=== PATIENT | male | born 1945 | race Caucasian/White ===

== ENCOUNTER 2021-07-18 19:59 | Emergency (ER) | payer MEDICARE ==
[~2021-07-18] VITALS: Ht 177.8 cm; Wt 83.9 kg
[~2021-07-18 19:59] MED LIST: BACTRIM DS TAB1 EACH PO; BUPROPION HCL75 MG; DICLOFENAC SODI75 MG PO; GLIPIZIDE XL5 MG PO; HYDROCODON-ACE1 EA14; KEFLEX500 MG PO; LEVOTHYROXINE100 MCG PO; NOVOLOG100 UNIT/1; RANITIDINE HCL150 MG; SIMVASTATIN80 MG; ZESTORETIC
--- NOTE | 2021-07-19 07:50 | EKG ---
[facility] [address] [place] [address] Signed Sinus rhythm with premature atrial complexes in a pattern of bigeminy Otherwise normal ECG No previous ECGs available Confirmed by CESAR ARMENTA MD ([id number]) on 07/19/2021 7:50:20 AM Electronically Signed By: CSEAR ARMENTA MD 07/19/21 0750 PATIENT NAME: ISIDROJERSEY Electrocardiogram DATE OF : 47 PHYSICIAN: CESAR ARMENTA MD REPORT #: [id number] REPORT IS CONFIDENTIAL AND NOT TO BE RELEASED WITHOUT AUTHORIZATION
== END 2021-07-19 00:28 | disposition home or self-care (01) ==
LOC: ED 19:59
DX: U07.1 COVID-19 (principal); N19 Unspecified kidney failure; E11.9 Type 2 diabetes mellitus without complications; I10 Essential (primary) hypertension; Z79.899 Other long term (current) drug therapy; Z79.4 Long term (current) use of insulin
CPT/HCPCS: 51798; 71045; 80048; 81001; 84484; 85025; 93005; 93010; 99285-25; C9803; G0480; J7030; U0003

== ENCOUNTER 2024-12-24 15:17 | Emergency (ER) | payer OTHER, MEDICARE ==
[~2024-12-24] VITALS: Ht 177.8 cm; Wt 87.1 kg
[2024-12-24] MEDS ORDERED: ASPIRIN81 MG PO (17:23)
[2024-12-24 17:31] VITALS: BP 134/69
== END 2024-12-24 17:31 | disposition home or self-care (01) ==
LOC: ED 15:17
DX: K40.90 Unilateral inguinal hernia, without obstruction or gangrene, not specified as recurrent (principal); I10 Essential (primary) hypertension; E11.9 Type 2 diabetes mellitus without complications; Z79.899 Other long term (current) drug therapy
CPT/HCPCS: 99283

== ENCOUNTER 2025-04-01 14:05 | Emergency (ER) | payer OTHER, MEDICARE ==
[~2025-04-01] VITALS: Ht 177.8 cm; Wt 74.8 kg
[~2025-04-01 14:05] MED LIST changes: +ASPIRIN81 MG PO
[2025-04-01] MEDS ORDERED: LASIX20 MG PO (14:28)
[2025-04-01 14:45] LABS: BASOPHILS 0.6 % (0.2-1.2); EOSINOPHILS 1.9 % (0.8-7.0); LYMPHOCYTES 13.1 % (21.8-53.1); MCH 30.6 PG (25.7-32.2); MCHC 33.3 g/dL (32.3-36.5); MCV 91.7 fL (79.0-92.2); MONOCYTES 6.4 % (5.3-12.2); NEUTROPHILS 77.8 % (34.0-67.9); RBC 4.81 M/uL (4.63-6.08)
[2025-04-01 14:57] LABS: ALT (SGPT) 17.0 U/L (14-59); AST (SGOT) 20.0 U/L (15-37); GLOMERULAR FILTRATION RATE,EST 51.0 mL/min (>60); PROTEIN, TOTAL 7.8 g/dL (6.4-8.2); UREA NITROGEN 21.0 mg/dL (7-18)
[2025-04-01] MEDS ORDERED: SODIUM CHLORIDE 0.9% 1,000 ML IV PRN (15:30)
[2025-04-01] MEDS ORDERED: LIDOCAINE 2% VISCOUS 6 ML SYR TOP ONE (17:30)
[2025-04-01 17:48] LABS: BLOOD/HGB, URINE NEGATIVE (Negative); KETONE, URINE NEGATIVE (Negative); LEUK ESTERASE, URINE NEGATIVE (negative); NITRITE, URINE NEGATIVE (negative)
[2025-04-01 19:07] VITALS: BP 135/82
--- NOTE | 2025-04-02 07:28 | EKG ---
[facility] [address] [facility] [place] [address] Signed Suspect arm lead reversal, interpretation assumes no reversal Sinus rhythm with 1st degree AV block with premature atrial complexes Biventricular hypertrophy with repolarization abnormality Lateral infarct , age undetermined Abnormal ECG When compared with ECG of 18-JUL-2021 20:06, Significant changes have occurred Confirmed by PEPITO BOYKIN MD ([id number]) on 04/02/2025 7:28:33 AM Electronically Signed By: PEPITO BOYKIN 04/02/25 0728 PATIENT NAME: DWAINEJERSEY Pj Electrocardiogram DATE OF : 47 PHYSICIAN: PEPITO BOYKIN REPORT #: [id number] REPORT IS CONFIDENTIAL AND NOT TO BE RELEASED WITHOUT AUTHORIZATION
== END 2025-04-01 19:07 | disposition home or self-care (01) ==
LOC: ED 14:05
PROVIDERS: Emergency Medicine
DX: E86.0 Dehydration (principal); E11.9 Type 2 diabetes mellitus without complications; I11.0 Hypertensive heart disease with heart failure; I50.9 Heart failure, unspecified; Z79.890 Hormone replacement therapy; Z79.899 Other long term (current) drug therapy; Z79.82 Long term (current) use of aspirin
CPT/HCPCS: 36415; 51702; 51798; 80053; 81003; 83735; 84484; 85025; 93005; 93010; 96360; 99284-25; A4311; J7030

== ENCOUNTER 2025-04-09 01:52 | Inpatient (IN) | payer OTHER, MEDICARE ==
[~2025-04-09] VITALS: Ht 177.8 cm; Wt 70.2 kg
[2025-04-09] VITALS (7 sets, daily range): BP systolic 94–132; BP diastolic 37–83
[~2025-04-09 01:52] MED LIST changes: +LASIX20 MG PO; -LEVOTHYROXINE100 MCG PO; +LEVOTHYROXINE88 MCG PO
--- OUTSIDE RECORDS SUMMARY | 2025-04-09 01:55 | XMS ---
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 Eduard has no Care Guidelines for this patient. Angel VISIT COUNT (12 MO.) [address] [facility] TOTAL 5 NOTE: Visits indicate total known visits. ED/UCC VISIT TRACKING (12 MO.) 04/09/2025 01:52 [facility] [place] TYPE: Emergency COMPLAINT: - ALTERED 04/03/2025 16:21 [facility] [place] TYPE: Emergency COMPLAINT: - WEAKNESS DIAGNOSES: - Allergy status to other drugs, medicaments and biological substances - Essential (primary) hypertension - Heart failure, unspecified - Hypertensive heart disease with heart failure - terminal gauger supervisor (current) use of aspirin - Lower abdominal pain, unspecified - Other chcf (current) drug therapy - Type 2 diabetes mellitus without complications - Weakness 04/01/2025 14:06 [facility] [place] TYPE: Emergency COMPLAINT: - CONFUSED,SWOLLEN FEET,DIARRHEA DIAGNOSES: - Dehydration - Heart failure, unspecified - Hormone replacement therapy - Hypertensive heart disease with heart failure - terminal gauger supervisor (current) use of aspirin - Other chcf (current) drug therapy - Type 2 diabetes mellitus without complications - Weakness 02/19/2025 18:01 [facility] [place] TYPE: Emergency DIAGNOSES: - Other specified soft tissue disorders - Pain in left ankle and joints of left foot - L ANKLE INJURY - L ANKLE PROBLEM 12/24/2024 15:[address] [facility] [place] TYPE: Emergency COMPLAINT: - GROIN SWELLING DIAGNOSES: - Essential (primary) hypertension - Lower abdominal pain, unspecified - Other exterminator helper termite (current) drug therapy - Right lower quadrant pain - Type 2 diabetes mellitus without complications - Unilateral inguinal hernia, without obstruction or gangrene, not specified as recurrent INPATIENT VISIT TRACKING (12 MO.) No inpatient visits to display in this time frame [email or web address]
[2025-04-09] MEDS ORDERED: LIDOCAINE 2% VISCOUS 6 ML SYR ONE (02:16)
[2025-04-09 02:19] LABS: BASOPHILS 0.2 % (0.2-1.2); EOSINOPHILS 0.2 % (0.8-7.0); LYMPHOCYTES 8.6 % (21.8-53.1); MCH 30.8 PG (25.7-32.2); MCHC 33.1 g/dL (32.3-36.5); MCV 93.1 fL (79.0-92.2); MONOCYTES 4.7 % (5.3-12.2); NEUTROPHILS 86.1 % (34.0-67.9); RBC 5.23 M/uL (4.63-6.08)
[2025-04-09] MEDS ORDERED: LIDOCAINE 2% VISCOUS 6 ML SYR TOP ONE (02:30)
[2025-04-09 02:42] LABS: BLOOD/HGB, URINE LARGE (Negative); KETONE, URINE NEGATIVE (Negative); LEUK ESTERASE, URINE MODERATE (negative); NITRITE, URINE NEGATIVE (negative)
[2025-04-09 02:43] LABS: ALT (SGPT) 22.0 U/L (14-59); AST (SGOT) 25.0 U/L (15-37); GLOMERULAR FILTRATION RATE,EST 45.0 mL/min (>60); PROTEIN, TOTAL 8.6 g/dL (6.4-8.2); UREA NITROGEN 38.0 mg/dL (7-18)
[2025-04-09 02:50] LABS: BACTERIA, URINE 3+ /hpf (negative); CASTS, URINE NONE SEEN \\lpf; CRYSTALS, URINE NONE SEEN (0-1+); EPITHELIAL CELLS, URINE SQUAMOUS 1+ /lpf (0-1+); REFLEX CULTURE, URINE Yes (No)
[2025-04-09 02:57] LABS: AMPHETAMINES, URINE NEGATIVE (NEGATIVE); BARBITURATES, URINE NEGATIVE (NEGATIVE); BENZODIAZEPINE, URINE NEGATIVE (NEGATIVE); CANNABINOID, URINE NEGATIVE (NEGATIVE); COCAINE, URINE NEGATIVE (NEGATIVE); ECSTASY, URINE NEGATIVE (NEGATIVE); FENTANYL, URINE NEGATIVE (NEGATIVE); METHADONE, URINE NEGATIVE (NEGATIVE); OPIATES, URINE NEGATIVE (NEGATIVE); OXYCODONE, URINE NEGATIVE (NEGATIVE); PHENCYCLIDINE, URINE NEGATIVE (NEGATIVE)
[2025-04-09] MEDS ORDERED: FUROSEMIDE 40 MG/4 ML VIAL IV ONE (03:45)
[2025-04-09 04:16] LABS: LACTIC ACID, BLOOD 2.5 mmol/L (0.4-2.0)
--- NOTE | 2025-04-09 06:59 | NUR ---
PT ARRIVES TO FLOOR AT ABOUT 0630 VIA STRETCHER WITH ED RN. A/O X2 (SELF/PLACE), CONTINUES TO RESTATE HIS PHAM WAS CHANGED OUT IN THE ED. UNABLE TO OBTAIN HIS HISTORY DUE TO HIS MENTATION, WILL HAVE TO REFER TO DAUGHTER/RAULITO WHEN THEY ARRIVE BACK AT THE FACILITY. IV X2 PATENT, FLUSH BUT DO NO PULL BACK BLOOD. BED ALARM IN PLACE, FALL MATS ON THE FLOOR. PHAM DRAINING YELLOW URINE. 4+ EDEMA TO BLE, PPP, DENIES PAIN. ALL PT CARE NEEDS MET, FRESH ICE WATER (200ML) GIVEN TO PATIENT FOR DRY MOUTH. VERY POOR DENTICIAN PT STATES SOFT FOODS WOULD BE GOOD WHEN DIET ORDER GETS PLACED. NO OTHER CONCERNS AT THIS TIME, CALL LIGHT WITHIN REACH.
--- NOTE | 2025-04-09 07:13 | NUR ---
VERBAL REPORT RECEIVED FROM FEDERICO MCKEON. PT RESTS IN BED AWAKE, ALARMS ON, FALL MATS IN PLACE. NO REQUESTS AT THIS TIME.
--- NOTE | 2025-04-09 07:45 | NUR ---
REPORT RECEIVED FROM FEDERICO ELAINE. PATIENT IN BED, EYES OPEN, CHEST RISE EVEN AND UNLABORED. CALL LIGHT AND PERSONAL BELONGINGS IN REACH OF PATIENT. NO APPARENT NEEDS NOTED AT THIS TIME.
--- NOTE | 2025-04-09 09:00 | NUR ---
Spoke with Dr. Vásquez, pts POA. Pt is confused and talking about rewiring the house throughout our conversation. Per Dr. Vásquez, pt lives in a home with her daughter and boyfriend and his granddaughter. Family will not provide care. Pt does all his IADLS. Pt has become increasingly confused over the last few months. EMS has been called and pt refuses to come to the hospital. Pt is a . He is unable to answer if he is service connected. I will call the SD. Pt is willing to SNF placement and this is what Dr. Redman is requesting. Pt is no longer able to provide care. I gave him [facility] number and he will call to begin the process for residential medicaid.
--- NOTE | 2025-04-09 09:46 | NUR ---
PATIENT IN BED, POA AND CASE MANAGMENT AT BEDSIDE. ASSESMENT COMPLETED. PATIENT DENIES CONCERNS.
--- NOTE | 2025-04-09 10:05 | NUR ---
PT SITTING UP IN BED. PT SEEMS CONFUSED, ONE MINUTE HE WAS TALKING ABOUT A AND THE NEXT HE COULD NOT ANSWER QUESTIONS. PT HAS FRESH ICE WATER NEAR HIS BED, WITHIN REACH, AND CALL LIGHT WITHIN REACH. FALL MATS ARE DOWN FOR SAFETY. PT REPORTS NEEDING NOTHING MORE AT THIS TIME.
[2025-04-09] MEDS ORDERED: ACETAMINOPHEN 325 MG TAB PO PRN (11:15)
--- NOTE | 2025-04-09 11:33 | NUR ---
VISITED DURING SPIRITUAL CARE ROUNDS. PT APPEARED TO BE SLEEPING. DID NOT DISTURB. PROVIDED PRAYER.
[2025-04-09] MEDS ORDERED: PHARMACY RENAL DOSE ADJUSTMENT 1 DOSE MISC PO SCH (12:00)
--- NOTE | 2025-04-09 12:26 | NUR ---
PATIENT IN BED, EYES OPEN, CHEST RISE EVEN AND UNLABORED. CALL LIGHT AND PERSONAL BELONGIGNS IN REACH OF PATIENT. NO APPARENT NEEDS NOTED AT THIS TIME.
--- NOTE | 2025-04-09 12:54 | NUR ---
Chart faxed to [facility] and Heather Hawkins at POA's request.
[2025-04-09] MEDS ORDERED: FUROSEMIDE 40 MG/4 ML VIAL IV SCH (13:30)
--- NOTE | 2025-04-09 13:32 | NUR ---
PT LAYING IN BED WITH HEAD UP 30%. PT LISTENING TO CLASSIC COUNTRY MUSIC ON TV. NO VISITORS IN THE ROOM. FALL MATS DOWN FOR SAFETY AND FRESH ICE WATER NEXT TO BED. CALL LIGHT WITHIN REACH, RE-EDUCATED ON THE CALL LIGHT. PT REPORTS NEEDING NOTHING MORE AT THIS TIME.
--- NOTE | 2025-04-09 14:18 | NUR ---
PATIENTIN BED. SCHEDULED MEDICATIONS ADMINISTERED. ASSESMENT COMPLETE. CALL LIGHT AND PERSONAL BELONGINGS IN REACH OF PATIENT.
--- NOTE | 2025-04-09 14:32 | NUR ---
Called the ME to determine if this pt has any service connection. He does not.[facility] There is not any documentation for this pt to be on the home based program. Will cont. with placement to SNF.
--- NOTE | 2025-04-09 14:37 | NUR ---
Pt does have a PCP at the [facility], Dr. Antony.
--- NOTE | 2025-04-09 15:23 | NUR ---
PATIENT IN BED, EYES OPEN, CHEST RISE EVEN AND UNLABORED. CALL LIGHT AND PERSONAL BELONGINGS IN REACH OF PATIENT. NO APPARENT NEEDS NOTED AT THIS TIME.
--- NOTE | 2025-04-09 16:27 | NUR ---
PATIENT IN BED, EYES OPEN, CHEST RISE EVEN AND UNALBORED. CALL LIGHT AND PERSONAL BELONGINGS IN REACH OF PATIENT. NO APPARENT NEEDS NOTED AT THIS TIME.
--- NOTE | 2025-04-09 17:44 | NUR ---
PATIENT IN BED, DINNER AT BEDSIDE. CALL LIGHT AND PERSONAL BELONGINGS IN REACH. PATIENT DENIES CONCERNS.
[2025-04-09] MEDS ORDERED: VOLTAREN ARTHRI20 GM TOP (18:17)
[2025-04-09] MEDS ORDERED: HYDROCODON-ACE1 EA10 PO (18:19)
[2025-04-09] MEDS ORDERED: ZOCOR40 MG PO (18:22)
[2025-04-09] MEDS ORDERED: TOPROL XL25 MG PO (18:23)
[2025-04-09] MEDS ORDERED: ZESTRIL10 MG PO (18:24)
[2025-04-09] MEDS ORDERED: AZELASTINE137 MCG/0. NAS (18:39)
--- NOTE | 2025-04-09 18:42 | NUR ---
pt resting in bed, visitor had left, tv off. fall mats around bed for sAFETY. PT DID NOT EAT DINNER. PT DID NOT WANT ICE IN HIS WATER, HAS FULL CUP OF WATER BY HIS BED. PT WAS DRY, WHEN BOTTOM CHECKED. CALL LIGHT NEXT TO PT ON BED, RE-EDUCATED CONCIERGE LIGHT. PT REPORTED NEEDING NOTHING MORE AT THIS TIME.
--- NOTE | 2025-04-09 18:44 | NUR ---
PT REFUSED A BED BATH TODAY. HE DID DO SOME ORAl care, his toothbrushg and mouthwash are in the bathroom. PT WAS CONFUSED EVENING APPROACHED.
--- NOTE | 2025-04-09 19:29 | NUR ---
REPORT RECEIVED FROM DAY SHIFT RN. PATIENT RESTING IN BED WITH EYES CLOSED. RESPIRATIONS EVEN AND UNLABORED. CALL LIGHT IN REACH.
--- NOTE | 2025-04-09 20:21 | NUR ---
PATIENT RESTING IN BED. VS AND I&Os OBTAINED AND RECORDED. PATIENT ALERT TO SELF. PATIENT COOPERATIVE WITH CARE. PHAM CATH CARE PROVIDED PER PROTOCOL. ASSESSMENT COMPLETE. BLE ELEVATED ON PILLOWS. PATIENT DENIES FURTHER NEEDS AT THIS TIME. CALL LIGHT IN REACH. BED ALARM ON. FALL MATS IN PLACE.
--- NOTE | 2025-04-09 22:24 | EKG ---
[facility] [address] [place] [address] Signed Sinus rhythm with frequent premature ventricular complexes Left ventricular hypertrophy with repolarization abnormality ( Sokolow-Nolasco , Garry product , Romhilt-Valdez ) Prolonged QT Abnormal ECG When compared with ECG of 03-APR-2025 16:47, premature supraventricular complexes are no longer present Confirmed by Gayla Malin MD () on 04/09/2025 10:24:45 PM Electronically Signed By: GAYLA MALIN MD 04/09/252223 PATIENT NAME: JERSEY ISIDRO Pj Electrocardiogram DATE OF : 47 PHYSICIAN: GAYLA MALIN MD REPORT #: [id number] REPORT IS CONFIDENTIAL AND NOT TO BE RELEASED WITHOUT AUTHORIZATION
--- NOTE | 2025-04-09 23:58 | NUR ---
PATIENT RESTING IN BED WITH EYES CLOSED. RESPIRATIONS EVEN AND UNLABORED. CALL LIGHT IN REACH. BED ALARM ON.
[2025-04-10] VITALS (9 sets, daily range): BP systolic 95–159; BP diastolic 45–117
--- NOTE | 2025-04-10 02:00 | NUR ---
PATIENT RESTING IN BED ON BACK WITH EYES CLOSED. VS AND I&Os OBTAINED AND RECORDED. PATIENT DENIES FURTHER NEEDS. BED ALARM ON. FALL MATS IN PLACE. CALL LIGHT IN REACH.
--- NOTE | 2025-04-10 04:01 | NUR ---
PATIENT RESTING IN BED ON BACK WATCHING TV. DENIES NEEDS AT THIS TIME. CALL LIGHT IN REACH.
--- NOTE | 2025-04-10 05:18 | NUR ---
PATIENT RESTING IN BED. VS AND I&Os OBTAINED AND RECORDED. PATIENT DENIES FURTHER NEEDS. CALL LIGHT IN REACH. BED ALARM ON.
[2025-04-10 05:36] LABS: BASOPHILS 0.4 % (0.2-1.2); EOSINOPHILS 2.1 % (0.8-7.0); LYMPHOCYTES 11.8 % (21.8-53.1); MCH 30.4 PG (25.7-32.2); MCHC 33.3 g/dL (32.3-36.5); MCV 91.2 fL (79.0-92.2); MONOCYTES 6.6 % (5.3-12.2); NEUTROPHILS 78.9 % (34.0-67.9); RBC 4.11 M/uL (4.63-6.08)
[2025-04-10 05:57] LABS: ALT (SGPT) 20.0 U/L (14-59); AST (SGOT) 21.0 U/L (15-37); GLOMERULAR FILTRATION RATE,EST 53.0 mL/min (>60); PHOSPHORUS, INORGANIC 3.2 mg/dL (2.5-4.9); PROTEIN, TOTAL 6.2 g/dL (6.4-8.2); UREA NITROGEN 35.0 mg/dL (7-18)
--- NOTE | 2025-04-10 07:40 | NUR ---
REPORT RECEIVED FROM DRAGAN CABALLERO. PATIENT IN BED. NO APPARENT NEEDS NOTED AT THIS TIME.
--- NOTE | 2025-04-10 07:41 | NUR ---
PATIENT IN BED AT THIS TIME. GREEN CHAIN OFFBEARER CHARTED HOURLY ROUNDS. PATIENT WILLING TO GET INTO CHAIR AFTER BREAKFAST. CALL LIGHT WITHIN REACH, NO FURTHER NEEDS.
[2025-04-10] MEDS ORDERED: POTASSIUM CHLORIDE 40 MEQ,LIDOCAINE HCL 1% 40 MG in DEXTROSE 5% 250 ML IV ONE (08:30)
[2025-04-10] MEDS ORDERED: ENOXAPARIN SODIUM 40 MG/0.4 ML SYR SUB-Q SCH (09:00)
--- NOTE | 2025-04-10 09:02 | NUR ---
PATIENT IN CHAIR AT THIS TIME. THIS DISTRIBUTION OPERATIONS MANAGER AND DISTRIBUTION OPERATIONS MANAGERJarrett HAYES ASSISTED PATIENT TO CHAIR AND ALSO CHANGED PATIENTS LINENS. CALL LIGHT WITHIN REACH, NO FURTHER NEEDS AT THIS TIME.
--- NOTE | 2025-04-10 09:55 | NUR ---
PATIENT IN CHAIR AT THIS TIME. FREIGHT LOADING SUPERVISOR CHARTED VITALS AND I&O'S. CALL LIGHT WITHIN REACH, NO FURTHER NEEDS.
--- NOTE | 2025-04-10 09:56 | NUR ---
PATIENT SITTING UPRIGHT IN CHAIR. SCHEDULED MEDICATIONS GIVEN WILLIAMS CARE AND CATH CARE COMPLETED. ASSESMENT COMPLETED. PATIENT DENIES CONCERNS AT THIS TIME.
--- NOTE | 2025-04-10 10:10 | NUR ---
Spoke with Oseas. He is somewhat better today and is able to answer some question. He does cont. to talk about wiring the house and needing to complete so there isn't a fire. Pt states he did eat, but stopped as his stomach was getting hard. This was a concern of his POA yesterday. Pt was not eating or drinking and no one would assist him with food.
--- NOTE | 2025-04-10 10:44 | NUR ---
UR CLINICAL REVIEW: MCG-PER MCG REVIEW MEETS INPT FOR UTI WITH NEED FOR IV ABX, IVF AND MONITORING. [facility] INPT 04/09/25 @ 1111 ORDER MATCHES REG NO AUTH REQUIRED PER GA GUIDELINES. CLINICALS FAXED FOR NOTIFICATION DISCHARGE TO SNF PER MD AND PT/OT EVAL 04/10/25 DC SUMMARY
[2025-04-10] MEDS ORDERED: ASPIRIN 81 MG CHEW PO SCH (10:54)
--- NOTE | 2025-04-10 10:54 | NUR ---
PATIENT SITTING UPRIGHT IN CHAIR. CALL LIGHT AND PERSONAL BELONGINGS IN REACH OF PATIENT. NO APPARENT NEEDS NOTED AT THIS TIME.
[2025-04-10] MEDS ORDERED: LEVOTHYROXINE SODIUM 88 MCG TAB PO SCH (10:55)
--- NOTE | 2025-04-10 11:12 | NUR ---
PATIENT SITTING UPRIGHT IN CHAIR. SCHEDULED MEDICATIONS ADMINISTERED.
--- NOTE | 2025-04-10 11:54 | NUR ---
PATIENT SITTING UPRIGHT IN CHAIR. CALL LIGHT AND PERSONAL BELONGINGS IN REACH OF PATIENT.
--- NOTE | 2025-04-10 11:54 | NUR ---
PATIENT IN CHAIR AT THIS TIME. SPECIMEN ACCESSIONER CHARTED HOURLY ROUNDS. CALL LIGHT WITHIN REACH, NO FURTHER NEEDS.
--- NOTE | 2025-04-10 12:03 | NUR ---
PATIENT REPOSITIONED IN CHAIR
--- NOTE | 2025-04-10 12:31 | NUR ---
PATIENT IN CHAIR, LUNCH AT HIS SIDE. SCHEDULED MEDICATIONS ADMINISTERED. PATIENT DENIES FURTHER CONCERNS.
--- NOTE | 2025-04-10 13:37 | NUR ---
Clincal notes, ST,PT,OT notes all sent to [facility] at [facility].
--- NOTE | 2025-04-10 13:42 | NUR ---
PATIENT IN CHAIR AT THIS TIME. STOCKROOM HELPER CHARTED VITLAS AND I&O'S. CALL LIGHT WITHIN REACH, NO FURTHER NEEDS.
--- NOTE | 2025-04-10 13:46 | NUR ---
PATIENT IN CHAIR, CALL LIGHT AND PERSONAL BELONGINGS IN REACH OF PATIENT.
--- NOTE | 2025-04-10 13:57 | NUR ---
PATIENT SITTING UPRIGHT IN CHAIR. NO APPARENT NEEDS NOTED AT THIS TIME.
--- NOTE | 2025-04-10 14:03 | NUR ---
VISITED DURING SPIRITUAL CARE ROUNDS. PT APPEARED TO BE SLEEPING. DID NOT DISTURB. PROVIDED PRAYER.
--- NOTE | 2025-04-10 14:49 | NUR ---
PATIENT SITTING UPRIGHT IN CHAIR. CALL LIGHT AND PERSONAL BELONGINGS IN REACH OF PATIENT. NO APPARENT NEEDS NOTED AT THIS TIME.
--- NOTE | 2025-04-10 15:43 | NUR ---
PATIENT IN BED, IMAGING IN THE ROOM.
--- NOTE | 2025-04-10 16:23 | NUR ---
PATIENT IN BED. ASSESMENT COMPLETED. PATIENT DENIES CONCERNS AT THIS TIME. CALL LIGHT AND PERSONAL BELONGINGS IN REACH OF PATIENT. BED ALARM ON, FALL MATS IN PLACE.
--- NOTE | 2025-04-10 16:47 | NUR ---
PATIENT IN BED, EYES CLOSED, CHEST RISE EVEN AND UNLABORED. CALL LIGHT AND PERSONAL BELONGINGS IN REACH OF PATIENT. BED ALARM ON AND FALL MATS IN PLACE.
--- NOTE | 2025-04-10 17:38 | NUR ---
PATIENT IN BED, FAMILY AT BEDISED. PATIENT PROVIDED WITH WARM BLANKETS AT HIS REQUEST. PATIENT DENIES FURTHER CONCERNS.
--- NOTE | 2025-04-10 17:54 | NUR ---
PATIENT IN BED AT THIS TIME. SUGAR HOUSE SUPERVISOR CHARTED VITALS AND I&O'S. SUGAR HOUSE SUPERVISOR GAVE PATIENT BEDBATH AND PROVIDED NEW GOWN TO PATIENT. CALL LIGHT WITHIN REACH, NO FURTHER NEEDS.
--- NOTE | 2025-04-10 19:57 | NUR ---
REPORT RECEIVED FROM DAY SHIFT RN. PATIENT RESTING IN BED WITH EYES CLOSED. RESPIRATIONS EVEN AND UNLABORED. BED ALARM ON. FALL MATS IN PLACE. CALL LIGHT IN REACH.
--- NOTE | 2025-04-10 20:06 | NUR ---
PATIENT LAYING IN BED. VITAL SIGNS AND I&OS WERE DONE. PATIENTS BRIEF CHECKED AND DRY. PATIENTS CALL LIGHT IS WITHIN REACH AND NO FURTHER NEEDS AT THIS TIME.
--- NOTE | 2025-04-10 23:05 | NUR ---
PATIENT RESTING IN BED, AWAKE. PATIENT DENIES NEEDS AND STATES HE DOES NOT WANT HIS TV TO BE ON. THIS RN TURNED TV OFF. PATIENT DENIES FURTHER NEEDS. CALL LIGHT IN REACH. BED ALARM ON.
[2025-04-11] VITALS (9 sets, daily range): BP systolic 78–117; BP diastolic 45–65
--- NOTE | 2025-04-11 03:58 | NUR ---
PATIENT RESTING IN BED ON BACK WITH EYES CLOSED. RESPIRATIONS EVEN AND UNLABORED. CALL LIGHT IN REACH.
[2025-04-11 05:42] LABS: BASOPHILS 0.2 % (0.2-1.2); EOSINOPHILS 2.2 % (0.8-7.0); LYMPHOCYTES 13.9 % (21.8-53.1); MCH 31.1 PG (25.7-32.2); MCHC 34.0 g/dL (32.3-36.5); MCV 91.4 fL (79.0-92.2); MONOCYTES 7.2 % (5.3-12.2); NEUTROPHILS 76.3 % (34.0-67.9); RBC 4.08 M/uL (4.63-6.08)
[2025-04-11 06:13] LABS: ALT (SGPT) 27.0 U/L (14-59); AST (SGOT) 22.0 U/L (15-37); GLOMERULAR FILTRATION RATE,EST 58.0 mL/min (>60); PROTEIN, TOTAL 6.4 g/dL (6.4-8.2); UREA NITROGEN 32.0 mg/dL (7-18)
--- NOTE | 2025-04-11 06:50 | NUR ---
FOLWY CARE NOT CHARTED BY PROIR TWIST MAKER ON FOR THIS NOC SHIFT, COMPLETED ONCE MORE, PT HAS NO FURTHER NEEDS
--- NOTE | 2025-04-11 06:57 | NUR ---
PATIENT RESTING IN BED. PHAM CATH CARE PROVIDED PER ORDER. PATIENT DENIES FURTHER NEEDS. BED ALARM ON. FALL MATS IN PLACE. CALL LIGHT IN REACH.
--- NOTE | 2025-04-11 07:16 | NUR ---
VERBAL REPORT RECIVED BY FEDERICO ARCHIBALD. PATIENT RESTING IN BED, BREATHING EVEN AND UNLABORED. BED ALARM ON FOR PATIENT SAFETY.CALL LIGHT IN REACH. NO REQUESTS AT THIS TIME.
[2025-04-11] MEDS ORDERED: POTASSIUM CHLORIDE 40 MEQ,LIDOCAINE HCL 1% 40 MG in DEXTROSE 5% 250 ML IV ONE (09:00)
[2025-04-11] MEDS ORDERED: POTASSIUM CHLORIDE 10 MEQ TABCR PO ONE (09:00)
--- NOTE | 2025-04-11 10:25 | NUR ---
Spoke with Oseas. He feel better. Denies needs. Plans on going to [place] tomorrow. I let him know I spoke with [facility] and they will accept him tomorrow. I will contact his POA Dr. Vásquez.
--- NOTE | 2025-04-11 10:27 | NUR ---
THIS RN IN ROOM TO GIVE MEDS, TOLERATED MEDS WITHOUT ANY ISSUES. IV ABX INFUSING, POTASSIUM ORDERED AND AWAITING COMPLETION OF ABX AND WILL START. IV TUBING ALL CHANGED/LABELED. PT WOULD LIKE TO WAIT A LITTLE LONGER UNTIL HE GETS OUT OF BED, BED ALARM IN PLACE. CASE MGMT IN TO SPEAK WITH PATIENT. CALL LIGHT WITHIN REACH, DENIES ANY OTHER NEEDS AT THIS TIME.
--- NOTE | 2025-04-11 11:31 | NUR ---
MORNING ASSESSMENT COMPLETE. PATIENT ORIENTED TO PERSON, PLACE, BUT NOT TO EVENT OR DATE. PATIENT UP IN CHAIR AWAKE LISTETNING TO MUSIC. CHAIR ALARM ON FOR PATIENT SAFETY. NO REQUESTS AT THIS TIME. CALL LIGHT IN REACH.
--- NOTE | 2025-04-11 11:38 | NUR ---
PT NOT AVAILABLE FOR VISIT. PROVIDED PRAYER.
--- NOTE | 2025-04-11 11:45 | NUR ---
DC REVIEW: IV ANTIBIOTICS NEEDED, PT/OT/ST EVAL AND TREAT, COG EVAL NEEDED, IV LASIX FOR DIURESIS, POTENTIAL ECHO TO BE COMPLETED. PLAN FOR DC TO SNF ADD: 04/12/2025
--- NOTE | 2025-04-11 12:34 | NUR ---
PATIENT UP IN CHAIR EATING LUNCH. CHAIR ALARM ON, FALL PRECAUTIONS IN PLACE FOR PATIENT SAFETY. NO FURTHER NEEDS AT THIS TIME. CALL LIGHT IN REACH.
--- NOTE | 2025-04-11 13:47 | NUR ---
PATIENT'S INITIAL BP WAS LOW, RETAKEN ON THE OTHER ARM AND IT REMAINED IN THE 80'S SYSTOLIC. MANUAL BP WAS TAKEN AND CONTINUED TO BE LOW AT 78/50. FEDERICO BENITEZ AND PRECEPTEE FEDERICO RENO ENTERED THE ROOM FOR ANOTHER SET OF VITALS. HEART RATE WAS SLIGHTLY ELEVATED. PATIENT REPORTED NO DIZZINESS OR SEEING SPOTS.
--- NOTE | 2025-04-11 13:54 | NUR ---
THIS RN TO BEDSIDE MITCHEL SAMUEL ALERTS THIS RN THAT PT'S BP IS LOW AND PRIMARY RN CURRENTLY OFF UNIT. BP TAKEN ON BOTH ARMS WITH SYSTOLIC IN THE 70s, MANUAL BP TAKEN BY THIS RN AND FEDERICO RENO AND RESULT IS 78/50. PT DENIES ANY SYMPTOMS OF HYPOTENSION. FEDERICO ELAINE NOTIFIED.
--- NOTE | 2025-04-11 14:03 | NUR ---
MD NOTIFIED THAT PT BLOOD PRESSURE MANUALLY WAS 78/50, PT ASYMPTOMATIC, WAS INITIALLY GOING TO QUESTION THE LASIX 40MG PO DOSE, ORDERED TO START TOMORROW AT 0900, MISSED THE 1300 DOSE TODAY. WITH BP LOW PER MD OKAY TO JUST START ORAL LASIX TOMORROW. RECHECK BP HERE IN 30 MINUTES AND CALL MD WITH NEW ORDER. MD WAS GIVEN INFORMATION REGARDING ALBUMIN, NO OTHER ORDERS AT THIS TIME.
--- NOTE | 2025-04-11 14:30 | NUR ---
MD INFORMED OF REPEAT BP, 83/50, STILL REMAINS ASYMPTOMATIC. NO NEW ORDERS, CONTINUE TO MONITOR.
--- NOTE | 2025-04-11 14:58 | NUR ---
Pt resting in bed. CHF education completed. Pt ask some questions and is still confused at times. Pt and nursing staff knows if pt or family members have questions I can return to the room. AHA Get with the Guidlines. Heart Failure book left at bedside.
--- NOTE | 2025-04-11 15:20 | NUR ---
Called and spoke with Dr. Vásquez. He will transport Oseas to [place] by private car tomorrow around 2 pm. He states pt is very slow to move and difficult to get into the car. He is concerned he will not get him there by 2 pm. I let him know I will tell [facility] it will be around 2 pm. Charge nurse and Dr. Gomez updated.
--- NOTE | 2025-04-11 15:39 | NUR ---
PATIENT RESTING IN BED, BREATHING EVEN AND UNLABORED. FALL PRECAUTIONS IN PLACE FOR PATIENT SAFETY. CALL LIGHT IN REACH.
--- NOTE | 2025-04-11 15:49 | NUR ---
BP RECHECKED AND DOCUMENTED. CATH/WILLIAMS CARE DONE BY THIS DEBEAKER.
--- NOTE | 2025-04-11 18:05 | NUR ---
PATIENT AWAKE IN BED LISTENING TO MUSIC. FALL PRECUATIONS IN PLACE AND BED ALARM ON FOR PATIENT SAFETY. CALL LIGHT IN REACH. NO NEEDS AT THIS TIME.
--- NOTE | 2025-04-11 19:36 | NUR ---
REPORT RECEIVED FROM DAY SHIFT RN. PATIENT RESTING IN BED. BED ALARM ON. FALL MATS IN PLACE. CALL LIGHT IN REACH. PATIENT DENIES NEEDS AT THIS TIME.
--- NOTE | 2025-04-11 20:54 | NUR ---
PATIENT RESTING IN BED. SKIN ASSESSMENT COMPLETE. THIS RN NOTICED LARGE WOUND ON COCCYX. PICTURES OF COCCYX WOUND OBTIANED. PHOTO CONSENT SIGNED BY PATIENT AND PLACED IN CHART. WAFFLE MATTRESS PLACED ON PATIENTS BED. BILAT HIPS ELEVATED WITH PILLOWS. PRN PAIN MEDICATION ADMINSITERED. BED ALARM ON. FALL MATS IN PLACE. PHAM CARE PROVIDED PER PROTOCOL. NO FURTHER NEEDS. CALL LIGHT IN REACH. CALL LIGHT PLACED TO MD STUART BY THIS RN REGARDING PATIENTS COCCYX WOUND, BP READING, AND ECHO RESULTS. NO NEW ORDERS AT THIS TIME.
--- NOTE | 2025-04-11 21:02 | NUR ---
PT RESTING IN BED. ROLLED PT TO CLEAN BACK SIDE, WITNESSED OPEN WOUND ON TAILBONE AREA, REPORTED TO RN. CLEANED PT AND REPLACED THE DIAPOER UNDER HIM. PLACED PT ON AN AIR MATRESS AND PLACED PILLOWS UNDER BOTH SIDES OF PT. RN GOT PT FRESH ICE WATER AND A FAN, THE ROOM WAS REALLY WARM AND PT REPORTED FEELING HOT. MADE SURE FAN WAS ON PT'S FACE, PT REPORTED THE FAN HELPING "ALOT". TOOK OUT TRAH AND CLEANED UP PT ROOM. PT REPORTED NEEDING NOTHING MORE AT THIS TIME. CALL LIGHT PLACED ON PT'S LAP. FALL MATS DOWN AROUND BED FOR SAFETY. RN'S TOOK PICUTES OF PT'S WOUND.
--- NOTE | 2025-04-11 23:17 | NUR ---
PATIENT RESTING IN BED WITH EYES CLOSED. RESPIRATIONS EVEN AND UNALBORED. NO FURTHER NEEDS. CALL LIGHT IN REACH.
--- NOTE | 2025-04-11 23:52 | NUR ---
PT TURNED @2345 TO LEFT SIDE LYING POSITION WITH PILLOWS PLACED UNDER RIGHT SIDE.
--- NOTE | 2025-04-12 02:04 | NUR ---
PT TURNED TO RIGHT SIDE LYING POSITION @0200 WITH PILLOWS PLACED UNDER LEFT SIDE.
--- NOTE | 2025-04-12 02:07 | NUR ---
PT WAS TURNED FROM HAVING PILLOWS UNDER BOTH SIDES TO PILLOWS UNDER HIS LEFT SIDE. PT IS TURNED EVERY TWO HOURS. PT HAS CALL LIGHT WITHIN REACH AND WATER NEXT TO HIS BED. PT DID NOT WANT ANYTHING ELSE AT THIS TIME. RN SAID VITALS ARE NOT RECORDED AT THIS TIME.
--- NOTE | 2025-04-12 03:39 | NUR ---
PATIENT RESTING IN BED ON BACK WITH EYES CLOSED RESPIRATIONS EVEN AND UNLABORED. CALL LIGHT IN REACH.
[2025-04-12 05:18] LABS: BASOPHILS 0.4 % (0.2-1.2); EOSINOPHILS 3.4 % (0.8-7.0); LYMPHOCYTES 14.6 % (21.8-53.1); MCH 30.0 PG (25.7-32.2); MCHC 32.4 g/dL (32.3-36.5); MCV 92.7 fL (79.0-92.2); MONOCYTES 7.5 % (5.3-12.2); NEUTROPHILS 73.9 % (34.0-67.9); RBC 4.36 M/uL (4.63-6.08)
[2025-04-12 05:26] VITALS: BP 106/59
[2025-04-12 05:33] LABS: ALT (SGPT) 28.0 U/L (14-59); AST (SGOT) 25.0 U/L (15-37); GLOMERULAR FILTRATION RATE,EST 60.0 mL/min (>60); PROTEIN, TOTAL 6.4 g/dL (6.4-8.2); UREA NITROGEN 35.0 mg/dL (7-18)
--- NOTE | 2025-04-12 05:43 | NUR ---
PT REPOSITIONED TO RIGHT SIDE LYING POSITION
--- NOTE | 2025-04-12 06:45 | NUR ---
PATIENT RESTING IN BED WITH EYES CLOSED. RESPIRATIONS EVEN AND UNLABORED. CALL LIGHT IN REACH.
[2025-04-12 07:06] VITALS: BP 106/59
--- NOTE | 2025-04-12 07:14 | NUR ---
VERBAL REPORT RECIVED BYDRAGAN RN. PATIENT RESTING IN BED EYES CLOSED, BREATHING EVEN AND UNLABORED. BED ALARM ON AND FALL PRECAUTIONS IN PLACE FOR PATIENT SAFETY. CALL LIGHT IN REACH. NO REQUESTS AT THIS TIME.
[2025-04-12] MEDS ORDERED: FUROSEMIDE 40 MG TAB PO SCH (09:00)
[2025-04-12 10:05] VITALS: BP 95/59
--- NOTE | 2025-04-12 10:27 | NUR ---
MORNING ASSESSMENT COMPLETED. ASSESSED WOUND ON COCCYX WITH DR. STUART. WOUND CONSULT ORDERED. PATIENT DENIES PAIN OR DISCOMFORT. FRESH ICE WATER PROVIDED BY EDGE BONDER. NO FURTHER NEEDS AT THIS TIME. FALL PRECUATIONS IN PLACE, AND BED ALARM ON. CALL LIGHT IN REACH.
--- NOTE | 2025-04-12 11:01 | NUR ---
IN ROOM WITH PATIENT. PATIENT SITTING UP IN BED LISTENING TO TV. FALL PRECAUTIONS AND BED ALARM ON FOR PATIENT SAFETY. CALL LIGHT IN REACH.
--- NOTE | 2025-04-12 11:52 | NUR ---
FEDERICO DUFFY IN ROOM PERFORMING WOUND CONSULT.
[2025-04-12] MEDS ORDERED: CEFUROXIME500 MG PO (12:07)
[2025-04-12] MEDS ORDERED: FUROSEMIDE40 MG PO (12:07)
[2025-04-12] MEDS ORDERED: JARDIANCE10 MG PO (12:08)
[2025-04-12] MEDS ORDERED: HYDROCODON-ACE1 EA10 PO (12:14)
[2025-04-12 13:16] VITALS: BP 98/62
--- NOTE | 2025-04-12 14:14 | NUR ---
called lala and gave report to cleopatra. All questions answered.
== END 2025-04-12 14:04 | DRG 689 ==
LOC: ED 01:52 → MS 01:53
PROVIDERS: Internal Medicine; ADMIT Family Medicine; ATTEND Student in an Organized Health Care Education/Training Program
PROC: 3E03329 Introduction of Other Anti-infective into Peripheral Vein, Percutaneous Approach (ICD-10-PCS; principal; 2025-04-09)
PROC: 0T2BX0Z Change Drainage Device in Bladder, External Approach (ICD-10-PCS; 2025-04-09)
DX: N39.0 Urinary tract infection, site not specified (principal); I50.33 Acute on chronic diastolic (congestive) heart failure; N17.9 Acute kidney failure, unspecified; F03.92 Unspecified dementia, unspecified severity, with psychotic disturbance; R33.9 Retention of urine, unspecified; I35.0 Nonrheumatic aortic (valve) stenosis; L89.159 Pressure ulcer of sacral region, unspecified stage; E03.9 Hypothyroidism, unspecified; Z66 Do not resuscitate; I11.0 Hypertensive heart disease with heart failure; E87.6 Hypokalemia; Z96.653 Presence of artificial knee joint, bilateral; Z88.8 Allergy status to other drugs, medicaments and biological substances; Z79.82 Long term (current) use of aspirin; Z79.890 Hormone replacement therapy
CPT/HCPCS: 36415; 51702; 70450; 71045; 80053; 80307; 81001; 83605; 83735; 83880; 84100; 84443; 84484; 85025; 87040; 87088; 87186; 92507; 92523; 93005; 93010; 93306; 96374; 97161; 97162; 97166; 97530; 97535; 99285-25; A9270; G0378; J0696; J1650; J1938; J3480; J3490; J7060